=== PATIENT | male | born 1980 | race African-American/Black ===

== ENCOUNTER 2016-09-26 23:48 | Emergency (ER) | payer SELFPAY ==
[2016-09-27] MEDS ORDERED: FENTANYL CITRATE INJ/PF 100 MCG/2 ML AMPUL IV ONE (01:11)
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
[2016-09-27] MEDS ORDERED: HYDROMORPHONE HCL INJ/PF 2 MG/ML AMPULE IV ONE (02:27)
[2016-09-27] MEDS ORDERED: CEPHALEXIN 500 MG CAPSULE PO ONE (02:39)
[2016-09-27] MEDS ORDERED: HYDROCODONE/ACETAMINOPHEN 5-325 MG 6 TAB/DSPK PO PRN (02:39)
[2016-09-27 02:58] VITALS: BP 137/97
== END 2016-09-27 03:00 | disposition home or self-care (01) ==
LOC: ER 23:48
DX: S02.19XA Other fracture of base of skull, initial encounter for closed fracture (principal); S02.82XA Fracture of other specified skull and facial bones, left side, initial encounter for closed fracture; S02.81XA Fracture of other specified skull and facial bones, right side, initial encounter for closed fracture; Y08.89XA Assault by other specified means, initial encounter; R55 Syncope and collapse; R51 Headache; M54.2 Cervicalgia
CPT/HCPCS: 99284; 96374; 96375; 70450; 70486; 72125; J3010; J1170